=== PATIENT | male | born 1950 | race Caucasian/White ===

== ENCOUNTER → 2024-08-18 | Day surgery (SDC) | payer MEDICARE ==
--- NOTE | 2024-08-13 13:47 | ELECTROCARDIOGRAPH REPORT ---
[facility] Test Date: 2024-08-13 Test Time: 13:44:41 Pat Name: RUPALI RENEE Department: [facility]-PRE-OP Patient ID: [facility]-[id number] Room: Gender: M Glass Technician/Installer: PRISCILLA : 1950 Requested By: SEAMUS ARSHAD Order Number: [id number] Reading MD: Dr. Griffin Theodore Measurements Intervals [place] Rate: 73 P: 71 MD: 168 QRS: 56 QRSD: 98 T: 84 QT: 381 QTc: 420 Interpretive Statements Sinus rhythm Abnormal R-wave progression, early transition ST elevation, consider inferior injury Electronically Signed On 08-14-2024 9:46:[address] Griffin Theodore Please click the below link to view image of tracing.
[2024-08-13 13:51] LABS: BASOPHILS # (AUTO) 0.1 X10'3 (0-0.2); BASOPHILS % (AUTO) 1.1 % (0-1); EOSINOPHILS # (AUTO) 0.1 X10'3 (0-0.9); EOSINOPHILS % (AUTO) 2.1 % (0-6); LYMPHOCYTES # (AUTO) 1.3 X10'3 (1.1-4.8); LYMPHOCYTES % (AUTO) 27.2 % (21-51); MEAN CORPUSCULAR HEMOGLOBIN 32.6 PG (27.0-31.0); MEAN CORPUSCULAR HGB CONC 34.7 g/dL (33.0-36.5); MEAN CORPUSCULAR VOLUME 93.9 FL (78-98); MEAN PLATELET VOLUME 7.1 FL (7.4-10.4); MONOCYTES # (AUTO) 0.4 X10'3 (0-0.9); MONOCYTES % (AUTO) 7.8 % (2-12); NEUTROPHILS % (AUTO) 61.8 % (42-75); PRE OP HEMATOCRIT 50.4 % (42.0-52.0); PRE OP HEMOGLOBIN 17.5 g/dL (14.0-17.9); PRE OP PLATELET COUNT 211 X10'3 (140-440); PRE OP WHITE BLOOD COUNT 4.8 10'3 (4.8-10.8); RED BLOOD COUNT 5.37 X10'6 (4.70-6.10); RED CELL DISTRIBUTION WIDTH 13.4 % (11.5-14.5)
[2024-08-13 14:06] LABS: ALBUMIN 3.6 G/DL (3.4-5.0); ALBUMIN/GLOBULIN RATIO 1.1 (1.1-1.5); ALKALINE PHOSPHATASE 84 IU/L (46-116); BLOOD UREA NITROGEN 24 MG/DL (7-18); BUN/CREATININE RATIO 21.6 (10.0-20.0); CALCIUM 8.4 MG/DL (8.5-10.1); CHLORIDE 107 MMOL/L (99-107); CREATININE 1.11 MG/DL (0.60-1.10); PRE OP ALT 42 U/L (30-65); PRE OP ANION GAP 3 (8-16); PRE OP AST 25 U/L (10-37); PRE OP BILIRUB, TOTAL 0.5 MG/DL (0.0-1.0); PRE OP GLUCOSE 119 MG/DL (70-104); PRE OP SODIUM 141 MMOL/L (135-145); TOTAL CARBON DIOXIDE 30.8 MMOL/L (24-32); TOTAL PROTEIN 6.9 G/DL (6.4-8.2); eGFR 65 ML/MIN
[2024-08-13 14:07] LABS: PRE OP POTASSIUM 4.3 MMOL/L (3.4-5.1)
[~2024-08-18] VITALS: Ht 175.3 cm; Wt 88.9 kg
[~2024-08-18] MED LIST: ASCO500C17 PO; ASPI81TA52 PO; BUPIVAcaine/PF 2.5mg/ml (0.25%) 10ml vial ONE; CHOL100046 PO; GLUC1TAB75 PO; HYDROmorphone/PF 0.2 MG/ML SYRINGE IV PRN; LIDOcaine 0.5% (5mg/ml) 50ml vial ONE; LIDOcaine 2% (20mg/ml) 5ml vial ONE; MIDAZolam 1 MG/ML 5ML VIAL ONE; MULT-1085 PO; OMEG1CAP21 PO; OXYM30SP26 BOTHNARES; PANT20TA18 PO; TURMERIC CURCUMIN PO; acetaminophen 1,000mg/100ml IV 100 ML IV PRN; fentaNYL/PF 50MCG/1 ML 2ML syringe ONE; hydrALAZINE 20mg/ml inj. IV PRN; ketorolac trometh 30MG/ML vial 30 MG/ML VIAL ONE; labetalol 20mg/4ml (5mg/ml) syringe IV PRN; meperidine/PF 25mg/ml syringe IV PRN; morphine 2 MG/ML inj. syringe IV PRN; morphine 4 MG/ML inj SYRINge IV PRN; ondansetron/PF 4mg/2ml inj IV PRN; proCHLORperazine 10 MG/2 ml inj IV PRN; ringers solution, lacted 1,000 ML IV SCH
[2024-08-18] MEDS: ceFAZolin 2gm in dextrose, iso 50 ML IV ONE (05:30)
[2024-08-18 08:45] VITALS: BP 122/80; PULSE 67; RESP 16; TEMP 97.8; TEMP 98.8; O2SAT 97
[2024-08-18] MEDS: ringers solution, lacted 1,000 ML IV SCH (09:05)
[2024-08-18] MEDS: famotidine 20mg tablet PO ONE (09:06)
[2024-08-18] MEDS: BUPIVAcaine/PF 2.5mg/ml (0.25%) 10ml vial IJ ONE (11:20)
[2024-08-18 11:39] VITALS: BP 129/92; PULSE 66; RESP 15; O2SAT 95
[2024-08-18 11:50] VITALS: BP 121/78; PULSE 63; RESP 13; O2SAT 94
[2024-08-18 12:00] VITALS: BP 136/88; PULSE 59; RESP 10; O2SAT 94
[2024-08-18 12:10] VITALS: BP 138/94; PULSE 61; RESP 13; O2SAT 94
[2024-08-18 12:19] VITALS: BP 135/84; PULSE 80; RESP 15; O2SAT 95
--- NOTE | 2024-08-18 12:23 | OPERATIVE REPORT ---
Operative Report Providers to ~ Date of Procedure: August 18, 2024 Pre-Operative Diagnosis: Dupuytren's contracture left palm and small finger Post-Operative Diagnosis SAME as PRE-Op Procedure Performed Left palm and small finger fasciectomy Surgeon: Kulwant Borja MD County Engineer None Anesthesiologist: Cristóbal Parrish Type of Anesthesia: Regional Findings: Prosthetics\Implants used: None Estimated Blood Loss: None Specimen Removed: None Description of Procedure: The patient is a 74-year-old with Dupuytren's contracture causing dysfunction because of contracture of the small finger. Surgery is indicated to improve function. Risks and benefits were discussed with the patient. Some of the risks include but are not limited to with the following, infection, bleeding, nerve or vessel damage, recurrence and stiffness. He agreed to proceed. He was given a block in the operating room and the arm was prepped and draped in usual manner. A zigzag incision was made starting in the mid palm area extending out to the PIP crease of the small finger. Flaps were elevated and the fascia was identified and transected proximally. There was a limb heading toward the ring finger and this was excised as well. Central cord was excised out to the base of the small finger which relieved the MCP contracture. Nerves were identified and away from the fascia and the dissection was taken out to the PIPJ joint. Once the fascia was fully excised the contracture was completely relieved. The incision was then irrigated small bleeders were cauterized and the skin was closed with Prolene suture. Marcaine was injected and a sterile dressing was applied. The tourniquet was released the hand perfused well he was placed in a splint and taken to the recovery room. KULWANT BORJA Jr., MD August 18, 2024 12:23
== END | disposition home or self-care (01) ==
LOC: PAS 08:37
PROVIDERS: ATTEND Orthopaedic Surgery Hand Surgery
DX: M72.0 Palmar fascial fibromatosis [Dupuytren] (principal); K21.9 Gastro-esophageal reflux disease without esophagitis; Z98.890 Other specified postprocedural states; Z79.899 Other long term (current) drug therapy; Z72.89 Other problems related to lifestyle
CPT/HCPCS: 26123; 36415; 80053; 82948; 85025; 93005; A4215; A4618; A6449; A7000; J0690; J1885; J2003; J2250; J3010; J3490; J7030; J7120; Z7506; Z7512; Z7610